=== PATIENT | male | born 1975 | race Caucasian/White ===

== ENCOUNTER 2019-06-29 09:53 | Outpatient (CLI) | payer OTHER | END 2019-06-29 10:02 | disposition home or self-care (01) | LOC: SONOGRAMA 09:53 | DX: E04.2 Nontoxic multinodular goiter (principal) ==

== ENCOUNTER 2022-09-13 13:24 | Outpatient (CLI) | payer OTHER | END 2022-09-13 13:35 | disposition home or self-care (01) | LOC: RAD 13:24 | PROVIDERS: ATTEND Urology | DX: R31.1 Benign essential microscopic hematuria (principal); R33.9 Retention of urine, unspecified ==